=== PATIENT | female | born 1960 | race Caucasian/White ===

== ENCOUNTER 2022-02-02 09:32 | Emergency (ER) | payer SELFPAY ==
[~2022-02-02] VITALS: Ht 170.2 cm; Wt 79.4 kg
[2022-02-02 09:34] VITALS: BP 177/82
[2022-02-02] MEDS ORDERED: IBUP800T27 PO (10:47)
== END 2022-02-02 10:58 | disposition home or self-care (01) ==
LOC: ER 09:32
DX: R07.81 Pleurodynia (principal); Z91.041 Radiographic dye allergy status
CPT/HCPCS: 71045; 93005